=== PATIENT | male | born 1970 | race Caucasian/White ===

== ENCOUNTER 2016-08-25 12:46 | Inpatient (IN) | payer OTHER ==
[~2016-08-25] VITALS: Ht 185.4 cm; Wt 100.4 kg
[2016-08-25] VITALS (13 sets, daily range): BP systolic 98–133; BP diastolic 54–75; PULSE 60–75; RESP 10–18; Ht 185.4 cm; Wt 100.4 kg
[~2016-08-25 12:46] MED LIST: ACETAMINOPHEN 1000 MG/100 ML IVPB ONE; CALCIUM; CEFAZOLIN 1 GM INJ ONE; CEPH-443 PO; IBUP-1542 PO; ONDANSETRON 4 MG INJ ONE; VITAMIN
[2016-08-25] MEDS ORDERED: CEFAZOLIN 2 GM/50 ML (PMX) 50 ML IVPB ONE (13:00)
[2016-08-25] MEDS ORDERED: SOD CHLORIDE 0.9% 1,000 ML IV SCH (13:00)
[2016-08-25] MEDS ORDERED: CHOL100062 PO (13:18)
[2016-08-25] MEDS ORDERED: CITRACAL PO (13:18)
[2016-08-25] MEDS ORDERED: MULTI PO (13:18)
[2016-08-25] MEDS ORDERED: PROPOFOL 20 ML ONE (14:54)
[2016-08-25] MEDS ORDERED: LIDOCAINE 2% (SDV) 5 ML INJ ONE (14:55)
[2016-08-25] MEDS ORDERED: ROCURONIUM 50 MG INJ ONE (14:55)
[2016-08-25] MEDS ORDERED: BUPIVACAINE 0.25% (MPF) 30 ML INJ ONE (15:05)
[2016-08-25] MEDS ORDERED: DEXAMETHASONE 4 MG/ML 1 ML INJ ONE (15:53)
[2016-08-25] MEDS ORDERED: hydrALAzine 20 MG INJ IV PRN (16:30)
[2016-08-25] MEDS ORDERED: EPHEDrine SULFATE 50 MG/5 ML SYG IV PRN (16:30)
[2016-08-25] MEDS ORDERED: FENTAnyl 50 MCG/ML VIAL IV PRN ×3 (16:30)
[2016-08-25] MEDS ORDERED: ONDANSETRON 4 MG INJ IV PRN (16:30)
[2016-08-25] MEDS ORDERED: HYDROmorphONE (0.2 MG/ML) 10ML SYG IV PRN ×3 (16:30)
[2016-08-25] MEDS ORDERED: MEPERIDINE 25 MG INJ IV PRN (16:30)
[2016-08-25] MEDS ORDERED: OXYCODONE/ACETAMINOPHEN (5/325) TAB PO PRN ×2 (16:30)
[2016-08-25] MEDS ORDERED: DIPHENHYDRAMINE 50 MG INJ IV PRN (16:30)
[2016-08-25] MEDS ORDERED: LABETALOL HCL 20MG INJ IV PRN (16:30)
[2016-08-25] MEDS ORDERED: NEOSTIGMINE 3 MG/3 ML SYRINGE ONE (16:58)
[2016-08-25] MEDS ORDERED: GLYCOPYRROLATE 0.4 MG INJ ONE (16:59)
[2016-08-25] MEDS ORDERED: HYDROCODONE/APAP (5/325) TAB PO PRN (17:00)
[2016-08-25] MEDS ORDERED: morphine 2 MG INJ IV PRN (17:00)
--- NOTE | 2016-08-25 17:04 | OPR ---
Date/Time of Note Date/Time of Note DATE: 08/25/16 TIME: 16:59 Operative Report Procedure Date: Aug 25, 2016 Preoperative Diagnosis thyroid nodule Postoperative Diagnosis same Operation Performed 1. total thyroidectomy 2. localized adjacent tissue transfer with the use of skin flaps 12 sq cm defect 3. therapeutic injection of subcutaneous marcaine Surgeon: Jarad CROOKS Specimens total thyroid with long single right superior marking single short right inferior marking double long left superior double short left inferior Indications This is a 46-year-old male found to have an FNA of the thyroid to follicular cells. He is taken to the OR for a total thyroidectomy. Risks alternatives benefits and percent were discussed the patient. Potential complications including but not limited to bleeding infection potential nerve injury including the recurrent laryngeal nerve injuries were discussed the patient patient expresses understanding and consents to the operation. Procedure Description Patient is taken to the OR and prepped and draped in usual sterile fashion surgical timeout was performed IV antibiotics are given. Collar incision is made with a 10 blade. Dissection cautery was carried down to the platysma. Superior and inferior platysmal flaps are created. The midline strap muscles were split divided. Retraction of the thyroid is performed with the left lobe medially. The superior inferior lobes are mobilized. [place] middle thyroidal vein is ligated with had a LigaSure. Careful attention was paid to the nerve to keep recurrent laryngeal nerve out of harm's way. The thyroid is then manipulated and dissected off the trachea medially. Attention was paid to the right thyroid lobe. The superior and inferior lobes are carefully dissected. The middle thyroidal vein is ligated. Careful attention was paid to the recurrent laryngeal nerve to keep out of harm's way. The right thyroid lobe was medialized. The thyroid is resected off the trachea en bloc. Surgical markings of single long right superior single short right inferior double long left superior double short left inferior specimen was sent. The surgical site was irrigated. There is good hemostasis. Valsalva maneuver to 40 cm of water was performed. There is no evidence of any bleeding. The strap muscles were reapproximated with interrupted 3-0 Vicryl. The platysma was reapproximated with interrupted 3-0 Vicryl. Due to large tissue defect localized adjacent tissue transfer of the skin flaps were performed with a multilayer closure with interrupted 3-0 Vicryl running 4-0 Monocryl. Local anesthesia was injected dry dressings were applied Jarad CROOKS Aug 25, 2016 17:04
[2016-08-25] MEDS: SOD CHLORIDE 0.9% 1,000 ML IV SCH (17:55)
[2016-08-25] MEDS: CEFAZOLIN 2 GM/50 ML (PMX) 50 ML IVPB SCH (17:55)
[2016-08-25 18:05] LABS: ADD SCAN DIFF NO
[2016-08-25 18:11] LABS: BASOPHIL # 0.1 10^3/ul (0.0-0.1); BASOPHILS % 0.6 % (0.0-2.0); EOSINOPHILS # 0.1 10^3/ul (0.0-0.5); EOSINOPHILS % 0.6 % (0.0-7.0); HEMATOCRIT 39.1 % (42.0-52.0); HEMOGLOBIN 13.2 g/dl (14.0-18.0); LYMPHOCYTES # 1.2 10^3/ul (0.8-2.9); MEAN CORPUSCULAR HEMOGLOBIN 29.5 pg (29.0-33.0); MEAN CORPUSCULAR HGB CONC 33.8 g/dl (32.0-37.0); MEAN CORPUSCULAR VOLUME 87.5 fl (82.0-101.0); MEAN PLATELET VOLUME 11.5 fl (7.4-10.4); MONOCYTE # 0.2 10^3/ul (0.3-0.9); MONOCYTES % 1.8 % (0.0-11.0); NEUTROPHIL # 9.1 10^3/ul (1.6-7.5); NEUTROPHILS % 85.4 % (39.0-77.0); PLATELET COUNT 248 10^3/UL (140-415); RED BLOOD COUNT 4.47 10^6/ul (4.70-6.10); RED CELL DISTRIBUTION WIDTH 12.5 % (11.5-14.5); WHITE BLOOD COUNT 10.6 10^3/ul (4.8-10.8)
--- NOTE | 2016-08-25 18:11 | HP ---
Date/Time of Note Date/Time of Note DATE: 08/25/16 TIME: 18:06 Assessment/Plan VTE Prophylaxis VTE Prophylaxis Intervention: SCD's Lines/Catheters IV Catheter Type (from Nrsg): Peripheral IV Assessment/Plan Assessment/Plan -Thyroid nodule, status post total thyroidectomy. Continue Zofran as needed for nausea and Tylenol and morphine as needed for pain. Continue postoperative antibiotics. Advance diet as patient tolerates. Monitor calcium level. -History of diabetes mellitus, monitor blood sugar q. before meals and at bedtime. Further recommendations based on clinical course. Plan of care discussed with Dr. Anaya. HPI/ROS Admit Date/Time Admit Date/Time Aug 25, 2016 at 12:46 Hx of Present Illness The patient is a 46-year-old gentleman who probably has found a thyroid nodule with was fine-needle aspiration positive for atypia. Patient was evaluated by Dr. Batista in the general surgery consultation. Patient was brought to the hospital and underwent total thyroidectomy. Patient experienced some moderate pain and he will be admitted for further evaluation and management. Patient with history of obesity, diabetes, GERD, hyperlipidemia which is currently under control. Patient is status post gastric bypass surgery, currently with good sugar control according to the patient, does not take any medication except for vitamins. ROS Constitutional: no complaints Eyes: no complaints ENT: no complaints Respiratory: no complaints Cardiovascular: no complaints Gastrointestinal: no complaints Genitourinary: no complaints Musculoskeletal: no complaints Neurologic: no complaints Endocrine: other (Per HPI) Lymphatic: no complaints Psychological: no complaints PMH/Family/Social Past Medical History Medical History: diabetes, high cholesterol, hypertension Past Surgical History Status post gastric bypass in 2010, status post cholecystectomy in 2012, status post sinus surgery. Family History Significant Family History: no pertinent family hx Social History Alcohol Use: none Smoking Status: Former smoker Drug Use: none Exam/Review of Systems Vital Signs Vitals Vital Signs Date Time Temp Pulse Resp B/P Pulse Ox O2 Delivery O2 Flow Rate FiO2 08/25/16 17:25 70 13 117/68 96 Room Air 08/25/16 17:05 98.8 Medications Medications Current Medications Sodium Chloride 1,000 ml @ 75 mls/hr [id number] IV ; Start 08/25/16 at 13:00; Stop 08/26/16 at 02:19 Cefazolin Sodium/ Dextrose (Ancef 2 Gm/50 ml (Pmx)) 50 ml @ 100 mls/hr Q8H IVPB Last administered on 08/25/16 17:55; Admin Dose 100 MLS/HR; Start at 17:00; Stop 08/26/16 at 16:59 Morphine Sulfate (morphine) 2 mg Q2H PRN IV PAIN LEVEL 6-10; Start 08/25/16 at 17:00 Acetaminophen/ Hydrocodone Bitart 1 tab 1 tab Q6H PRN PO PAIN LEVEL 6-10; Start 08/25/16 at 17:00 Sodium Chloride (NS) 1,000 ml @ 100 mls/hr Q10H IV Last administered on 17:55; Admin Dose 100 MLS/HR; Start 08/25/16 at 16:55 MYRTLE BAUER Aug 25, 2016 18:10
[2016-08-25 18:31] LABS: ALBUMIN 4.2 g/dl (3.3-4.9); BILIRUBIN,INDIRECT 0.3 mg/dl (0-1.1); BILIRUBIN,TOTAL 0.3 mg/dl (0.2-1.3); TOTAL PROTEIN 6.3 g/dl (6.1-8.1)
[2016-08-25 18:35] LABS: CALCIUM 8.6 mg/dl (8.4-10.2); CREATININE 0.9 mg/dl (0.61-1.24); POTASSIUM 4.3 mmol/L (3.5-5.1)
[2016-08-25] MEDS ORDERED: DEXTROSE 50% 50 ML SYRINGE IV PRN ×2 (19:00)
[2016-08-25] MEDS ORDERED: GLUCAGON 1 MG INJ IM PRN (19:00)
[2016-08-25] MEDS ORDERED: GLUCOSE GEL 15 GRAM TUBE BUCCAL PRN (19:00)
[2016-08-25] MEDS ORDERED: GLUCOSE GEL 15 GRAM TUBE PO PRN ×2 (19:00)
[2016-08-25] MEDS: INSULIN ASPART [NOVOLOG] 3 ML PEN SC SCH (21:00)
[2016-08-26] MEDS: CEFAZOLIN 2 GM/50 ML (PMX) 50 ML IVPB SCH ×2 (01:53→09:33)
[2016-08-26] MEDS ORDERED: ACCU-CHEK XX SCH (02:00)
[2016-08-26] MEDS: SOD CHLORIDE 0.9% 1,000 ML IV SCH ×2 (02:55→12:36)
[2016-08-26 05:17] LABS: ADD SCAN DIFF NO
[2016-08-26 05:45] LABS: BASOPHILS % 0.1 % (0.0-2.0); HEMATOCRIT 42.6 % (42.0-52.0); HEMOGLOBIN 14.2 g/dl (14.0-18.0); LYMPHOCYTES # 0.7 10^3/ul (0.8-2.9); LYMPHOCYTES % 8.1 % (15.0-51.0); MEAN CORPUSCULAR HEMOGLOBIN 29.5 pg (29.0-33.0); MEAN CORPUSCULAR HGB CONC 33.3 g/dl (32.0-37.0); MEAN CORPUSCULAR VOLUME 88.6 fl (82.0-101.0); MEAN PLATELET VOLUME 11.8 fl (7.4-10.4); MONOCYTE # 0.3 10^3/ul (0.3-0.9); MONOCYTES % 3.2 % (0.0-11.0); NEUTROPHIL # 7.8 10^3/ul (1.6-7.5); NEUTROPHILS % 88.1 % (39.0-77.0); PLATELET COUNT 268 10^3/UL (140-415); RED BLOOD COUNT 4.81 10^6/ul (4.70-6.10); RED CELL DISTRIBUTION WIDTH 12.4 % (11.5-14.5); WHITE BLOOD COUNT 8.9 10^3/ul (4.8-10.8)
[2016-08-26 06:07] LABS: ALBUMIN 4.6 g/dl (3.3-4.9); ALBUMIN/GLOBULIN RATIO 1.91; BILIRUBIN,INDIRECT 0.6 mg/dl (0-1.1); BILIRUBIN,TOTAL 0.6 mg/dl (0.2-1.3); CALCIUM 9.6 mg/dl (8.4-10.2); CREATININE 0.78 mg/dl (0.61-1.24); POTASSIUM 4.9 mmol/L (3.5-5.1)
[2016-08-26] MEDS: INSULIN ASPART [NOVOLOG] 3 ML PEN SC SCH ×2 (07:50→11:40)
[2016-08-26 08:39] VITALS: BP 99/52; RESP 19
[2016-08-26] MEDS ORDERED: ACETAMINOPHEN 325 MG TAB PO PRN (10:00)
--- NOTE | 2016-08-26 12:17 | PN ---
Date/Time of Note Date/Time of Note DATE: 08/26/16 TIME: 12:16 Assessment/Plan VTE Prophylaxis VTE Prophylaxis Intervention: SCD's Lines/Catheters IV Catheter Type (from Nrs): Peripheral IV Assessment/Plan Chief Complaint/Hosp Course total thyroidectomy doing well no issues, voice normal Problems: Assessment/Plan d/c home and f/u in 2 weeks Subjective 24 Hr Interval Summary Free Text/Dictation no issues, doing well, Exam/Review of Systems Vital Signs Vitals Vital Signs Date Time Temp Pulse Resp B/P Pulse Ox O2 Delivery O2 Flow Rate FiO2 08/26/16 08:39 98.0 50 19 99/52 99 08/25/16 19:00 Room Air Intake and Output 08/25/16 08/25/16 08/26/16 15:00 23:00 07:00 Intake Total 1000 ml 1750 ml Output Total 20 ml 1000 ml Balance 980 ml 750 ml Exam c/d/i Results Result Diagram: 08/26/16 0437 08/26/16 0437 Results 24 hrs Laboratory Tests Test 08/25/16 13:53 08/25/16 17:40 08/25/16 17:50 08/25/16 21:04 Bedside Glucose 84 110 Sodium Level 136 Potassium Level 4.3 Chloride Level 106 Carbon Dioxide Level 26 Anion Gap 8 Blood Urea Nitrogen 16 Creatinine 0.90 Glucose Level 111 Calcium Level 8.6 Total Bilirubin 0.3 Direct Bilirubin 0.00 Indirect Bilirubin 0.3 Aspartate Amino Transf (AST/SGOT) 29 Alanine Aminotransferase (ALT/SGPT) 41 Alkaline Phosphatase 39 L Total Protein 6.3 Albumin 4.2 Globulin 2.10 Albumin/Globulin Ratio 2.00 White Blood Count 10.6 Red Blood Count 4.47 L Hemoglobin 13.2 L Hematocrit 39.1 L Mean Corpuscular Volume 87.5 Mean Corpuscular Hemoglobin 29.5 Mean Corpuscular Hemoglobin Concent 33.8 Red Cell Distribution Width 12.5 Platelet Count 248 Mean Platelet Volume 11.5 H Neutrophils % 85.4 H Lymphocytes % 11.0 L Monocytes % 1.8 Eosinophils % 0.6 Basophils % 0.6 Nucleated Red Blood Cells % 0.0 Neutrophils # 9.1 H Lymphocytes # 1.2 Monocytes # 0.2 L Eosinophils # 0.1 Basophils # 0.1 Nucleated Red Blood Cells # 0.0 Test 08/26/16 04:37 08/26/16 08:33 White Blood Count 8.9 Red Blood Count 4.81 Hemoglobin 14.2 Hematocrit 42.6 Mean Corpuscular Volume 88.6 Mean Corpuscular Hemoglobin 29.5 Mean Corpuscular Hemoglobin Concent 33.3 Red Cell Distribution Width 12.4 Platelet Count 268 Mean Platelet Volume 11.8 H Neutrophils % 88.1 H Lymphocytes % 8.1 L Monocytes % 3.2 Eosinophils % 0.0 Basophils % 0.1 Nucleated Red Blood Cells % 0.0 Neutrophils # 7.8 H Lymphocytes # 0.7 L Monocytes # 0.3 Eosinophils # 0.0 Basophils # 0.0 Nucleated Red Blood Cells # 0.0 Sodium Level 133 L Potassium Level 4.9 Chloride Level 101 Carbon Dioxide Level 29 Anion Gap 8 Blood Urea Nitrogen 16 Creatinine 0.78 Glucose Level 135 Calcium Level 9.6 Total Bilirubin 0.6 Direct Bilirubin 0.00 Indirect Bilirubin 0.6 Aspartate Amino Transf (AST/SGOT) 33 Alanine Aminotransferase (ALT/SGPT) 38 Alkaline Phosphatase 37 L Total Protein 7.0 Albumin 4.6 Globulin 2.40 Albumin/Globulin Ratio 1.91 Bedside Glucose 121 Medications Medications Current Medications Cefazolin Sodium/ Dextrose (Ancef 2 Gm/50 ml (Pmx)) 50 ml @ 100 mls/hr Q8H IVPB Last administered on 08/26/16 09:33; Admin Dose 100 MLS/HR; Start at 17:00; Stop 08/26/16 at 16:59 Morphine Sulfate (morphine) 2 mg Q2H PRN IV PAIN LEVEL 6-10; Start 08/25/16 at 17:00 Acetaminophen/ Hydrocodone Bitart 1 tab 1 tab Q6H PRN PO PAIN LEVEL 6-10 Last administered on 08/25/16 21:23; Admin Dose 1 TAB; Start 08/25/16 at 17:00 Sodium Chloride (NS) 1,000 ml @ 100 mls/hr Q10H IV Last administered on 17:55; Admin Dose 100 MLS/HR; Start 08/25/16 at 16:55 Diagnostic Test (Pha) (Accu-Chek) 1 ea 02 XX ; Start 08/26/16 at 02:00 Miscellaneous Information 1 ea NOTE XX ; Start 08/25/16 at 19:00 Glucose (Glutose) 15 gm Q15M PRN PO DECREASED GLUCOSE; Start 08/25/16 at 19:00 Glucose (Glutose) 22.5 gm Q15M PRN PO DECREASED GLUCOSE; Start 08/25/16 at 19: 00 Dextrose (D50w Syringe) 25 ml Q15M PRN IV DECREASED GLUCOSE; Start 08/25/16 at 19:00 Dextrose (D50w Syringe) 50 ml Q15M PRN IV DECREASED GLUCOSE; Start 08/25/16 at 19:00 Glucagon (Glucagen) 1 mg Q15M PRN IM DECREASED GLUCOSE; Start 08/25/16 at 19:00 Glucose (Glutose) 15 gm Q15M PRN BUCCAL DECREASED GLUCOSE; Start 08/25/16 at 19 :00 Acetaminophen (Tylenol Tab) 650 mg Q6H PRN PO PAIN AND OR ELEVATED TEMP Last administered on 08/26/16t 10:16; Admin Dose 650 MG; Start 08/26/16 at 10:00 Jarad CROOKS Aug 26, 2016 12:16
[2016-08-26] MEDS ORDERED: DOCU-144 PO (13:36)
[2016-08-26] MEDS ORDERED: FAMO-96 PO (13:36)
[2016-08-26] MEDS ORDERED: HYDR-3498 PO (13:36)
--- NOTE | 2016-08-26 13:41 | DS ---
Date/Time of Note Date/Time of Note DATE: 08/26/16 TIME: 13:41 Discharge Summary Admission/Discharge Info Admit Date/Time Aug 25, 2016 at 12:46 Discharge Date/Time Hx of Present Illness The patient is a 46-year-old gentleman who probably has found a thyroid nodule with was fine-needle aspiration positive for atypia. Patient was evaluated by Dr. Batista in the general surgery consultation. Patient was brought to the hospital and underwent total thyroidectomy. Patient experienced some moderate pain and he will be admitted for further evaluation and management. Patient with history of obesity, diabetes, GERD, hyperlipidemia which is currently under control. Patient is status post gastric bypass surgery, currently with good sugar control according to the patient, does not take any medication except for vitamins. Hospital Course total thyroidectomy doing well no issues, voice normal Home Meds Active Scripts Famotidine* (Pepcid*) 20 Mg Tablet, 20 MG PO DAILY for 4 Days, #20 TAB Prov:CHICO COFFEY 08/26/16 Docusate Sodium* (Colace*) 100 Mg Capsule, 100 MG PO DAILY, #20 CAP Prov:CHICO COFFEY 08/26/16 Hydrocodone Bit-Acetaminophen (Hydrocodone Bit-APAP) 5-325MG Tablet, 1 TAB PO Q6H Y for PAIN LEVEL 6-10, #7 TAB Prov:CHICO COFFEY 08/26/16 Reported Medications Calcium Citrate* (Citracal*) 950 Mg Tab, 950 MG PO DAILY, TAB 08/25/16 Multivitamins* (Theragran*) 1 Tab Tab, 1 TAB PO DAILY, TAB 08/25/16 Cholecalciferol* (Vitamin D3*) 1,000 Unit Tablet, 1000 UNIT PO DAILY, TAB 08/25/16 Discontinued Reported Medications [Calcium] No Conflict Check, DAILY 07/05/13 [Vitamin] No Conflict Check, DAILY 07/05/13 Discontinued Scripts Cephalexin* (Keflex*) 500 Mg Capsule, 500 MG PO QID for 10 Days, CAP Prov:BLESSING CORDERO NP 11/26/14 Ibuprofen* (Ibuprofen*) 600 Mg Tablet, 600 MG PO Q6H Y for PA, #30 TAB Prov:BLESSING CORDERO NP 11/26/14 Primary Care Provider Not On Staff Doctor Pending Labs Laboratory Tests Test 08/25/16 13:53 08/25/16 17:40 08/25/16 17:50 08/25/16 21:04 Bedside Glucose 84mg/dL (70-220) 110mg/dL (70-220) Sodium Level 136mmol/L (135-144) Potassium Level 4.3mmol/L (3.5-5.1) Chloride Level 106mmol/L (97-110) Carbon Dioxide Level 26mmol/L (21-31) Anion Gap 8 (8-16) Blood Urea Nitrogen 16mg/dl (7-20) Creatinine 0.90mg/dl (0.61-1.24) Glucose Level 111mg/dl (70-220) Calcium Level 8.6mg/dl (8.4-10.2) Total Bilirubin 0.3mg/dl (0.2-1.3) Direct Bilirubin 0.00mg/dl (0.00-0.20) Indirect Bilirubin 0.3mg/dl (0-1.1) Aspartate Amino Transf (AST/SGOT) 29IU/L (15-46) Alanine Aminotransferase (ALT/SGPT) 41IU/L (13-69) Alkaline Phosphatase 39IU/L (42-121) Total Protein 6.3g/dl (6.1-8.1) Albumin 4.2g/dl (3.3-4.9) Globulin 2.10g/dl (1.3-3.2) Albumin/Globulin Ratio 2.00 White Blood Count 10.610^3/ul (4.8-10.8) Red Blood Count 4.4710^6/ul (4.70-6.10) Hemoglobin 13.2g/dl (14.0-18.0) Hematocrit 39.1% (42.0-52.0) Mean Corpuscular Volume 87.5fl (82.0-101.0) Mean Corpuscular Hemoglobin 29.5pg (29.0-33.0) Mean Corpuscular Hemoglobin Concent 33.8g/dl (32.0-37.0) Red Cell Distribution Width 12.5% (11.5-14.5) Platelet Count 20461^3/UL (140-415) Mean Platelet Volume 11.5fl (7.4-10.4) Neutrophils % 85.4% (39.0-77.0) Lymphocytes % 11.0% (15.0-51.0) Monocytes % 1.8% (0.0-11.0) Eosinophils % 0.6% (0.0-7.0) Basophils % 0.6% (0.0-2.0) Nucleated Red Blood Cells % 0.0/100WBC (0.0-0.0) Neutrophils # 9.110^3/ul (1.6-7.5) Lymphocytes # 1.210^3/ul (0.8-2.9) Monocytes # 0.210^3/ul (0.3-0.9) Eosinophils # 0.110^3/ul (0.0-0.5) Basophils # 0.110^3/ul (0.0-0.1) Nucleated Red Blood Cells # 0.010^3/ul (0.0-0.0) Test 08/26/16 04:37 08/26/16 08:33 08/26/16 12:52 White Blood Count 8.910^3/ul (4.8-10.8) Red Blood Count 4.8110^6/ul (4.70-6.10) Hemoglobin 14.2g/dl (14.0-18.0) Hematocrit 42.6% (42.0-52.0) Mean Corpuscular Volume 88.6fl (82.0-101.0) Mean Corpuscular Hemoglobin 29.5pg (29.0-33.0) Mean Corpuscular Hemoglobin Concent 33.3g/dl (32.0-37.0) Red Cell Distribution Width 12.4% (11.5-14.5) Platelet Count 98852^3/UL (140-415) Mean Platelet Volume 11.8fl (7.4-10.4) Neutrophils % 88.1% (39.0-77.0) Lymphocytes % 8.1% (15.0-51.0) Monocytes % 3.2% (0.0-11.0) Eosinophils % 0.0% (0.0-7.0) Basophils % 0.1% (0.0-2.0) Nucleated Red Blood Cells % 0.0/100WBC (0.0-0.0) Neutrophils # 7.810^3/ul (1.6-7.5) Lymphocytes # 0.710^3/ul (0.8-2.9) Monocytes # 0.310^3/ul (0.3-0.9) Eosinophils # 0.010^3/ul (0.0-0.5) Basophils # 0.010^3/ul (0.0-0.1) Nucleated Red Blood Cells # 0.010^3/ul (0.0-0.0) Sodium Level 133mmol/L (135-144) Potassium Level 4.9mmol/L (3.5-5.1) Chloride Level 101mmol/L (97-110) Carbon Dioxide Level 29mmol/L (21-31) Anion Gap 8 (8-16) Blood Urea Nitrogen 16mg/dl (7-20) Creatinine 0.78mg/dl (0.61-1.24) Glucose Level 135mg/dl (70-220) Calcium Level 9.6mg/dl (8.4-10.2) Total Bilirubin 0.6mg/dl (0.2-1.3) Direct Bilirubin 0.00mg/dl (0.00-0.20) Indirect Bilirubin 0.6mg/dl (0-1.1) Aspartate Amino Transf (AST/SGOT) 33IU/L (15-46) Alanine Aminotransferase (ALT/SGPT) 38IU/L (13-69) Alkaline Phosphatase 37IU/L (42-121) Total Protein 7.0g/dl (6.1-8.1) Albumin 4.6g/dl (3.3-4.9) Globulin 2.40g/dl (1.3-3.2) Albumin/Globulin Ratio 1.91 Bedside Glucose 121mg/dL (70-220) 111mg/dL (70-220) CHICO COFFEY Aug 26, 2016 13:41
--- NOTE | 2016-08-26 13:41 | PDOCDIS ---
Discharge Instructions CONDITION Patient Condition: Stable HOME CARE INSTRUCTIONS: Diet Instructions: ACTIVITY: Activity Restrictions: Slowly Increase Activity Rest between Activity Avoid heavy lifting Do not Drive Do not operate Machinery Do not operate Power Tool Avoid Heavy Housework Bathing Restrictions: FOLLOW UP/APPOINTMENTS Follow-up Plan FU with Primary MD X 1 WEEK FU with surgery as recommended CHICO COFFEY Aug 26, 2016 13:41
== END 2016-08-26 14:28 | disposition home or self-care (01) | DRG 624 ==
LOC: REC 12:46 → EDSTATUS 15:00 → MS1 18:50
PROVIDERS: ADMIT Internal Medicine; ATTEND Surgery
PROC: 0HX4XZZ Transfer Neck Skin, External Approach (ICD-10-PCS; 2016-08-25)
PROC: 0GTK0ZZ Resection of Thyroid Gland, Open Approach (ICD-10-PCS; principal; 2016-08-25 15:00)
DX: E04.1 Nontoxic single thyroid nodule (principal); E11.9 Type 2 diabetes mellitus without complications; K21.9 Gastro-esophageal reflux disease without esophagitis; E78.5 Hyperlipidemia, unspecified; Z87.891 Personal history of nicotine dependence
CPT/HCPCS: 80053; 82962; 85025; 88307; J0131; J0690; J1100; J1815; J2405; J2710; J3010; J7030